=== PATIENT | male | born 1985 | race Caucasian/White ===

== ENCOUNTER 2019-06-30 05:57 | Inpatient (IN) | payer OTHER ==
[2019-06-24 15:38] VITALS: BMI 56.4
[~2019-06-30 05:57] MED LIST: BUPIVACAINE HCL/PF 0.25% (2.5MG/ML) 10 ML VIAL IJ ONE
[2019-06-30] MEDS ORDERED: ePHEDrine SULFATE 50 MG/1 ML AMPULE ONE (07:18)
[2019-06-30] MEDS ORDERED: PROPOFOL 20 ML ONE ×5 (07:18→08:18)
[2019-06-30] MEDS ORDERED: SUCCINYLCHOLINE CHLORIDE 200 MG/10 ML SYRINGE ONE (07:18)
[2019-06-30] MEDS ORDERED: MIDAZOLAM HCL 2 MG/2 ML SINGLE DOSE VIAL ONE ×2 (07:19→07:31)
[2019-06-30] MEDS ORDERED: ROCURONIUM BROMIDE 50 MG/5 ML SYRINGE ONE ×2 (07:19→07:33)
[2019-06-30] MEDS ORDERED: LIDOCAINE HCL/PF 2% SDV 5ML VIAL ONE (07:20)
[2019-06-30] MEDS ORDERED: ONDANSETRON 4 MG/2 ML VIAL ONE (07:20)
[2019-06-30] MEDS ORDERED: DEXAMETHASONE SOD PHOSPHATE 4 MG/1 ML VIAL ONE (07:20)
[2019-06-30] MEDS ORDERED: BUPIVACAINE HCL 0.25% 125 MG/50 ML VIAL ONE (07:30)
[2019-06-30] MEDS ORDERED: DEXAMETHASONE SOD PHOSPHATE/PF 10 MG/ML SDV ONE (07:31)
[2019-06-30] MEDS ORDERED: BUPIVACAINE HCL/PF 0.5% (5 MG/ML) 30 ML VIAL IJ ONE (07:31)
[2019-06-30] MEDS ORDERED: PHENYLEPHRINE HCL 10 MG/1 ML SINGLE DOSE VIAL ONE (07:37)
--- NOTE | 2019-06-30 07:41 | HP ---
Admitting History and Physical - Admission Chief Complaint: Morbid obesity History Source: Patient Limitations to Obtaining History: No Limitations - Smoking History Smoking history: Former smoker Have you smoked in the past 12 months: No Aproximately how many cigarettes per day: 0 - Alcohol/Substance Use Hx Alcohol Use: (RARELY) - Social History ADL: Independent Home Medications - Allergies Allergies/Adverse Reactions: Allergies Allergy/AdvReac Type Severity Reaction Status Date / Time No Known Allergies Allergy Verified 06/30/19 06:57 - Home Medications Home Medications: Ambulatory Orders Docusate Sodium [Colace -] 100 mg PO TID #90 capsule 06/30/19 Famotidine [Pepcid] 20 mg PO BID #60 tablet 06/30/19 Ondansetron [Zofran -] 8 mg PO TID #30 tablet 06/30/19 Oxycodone HCl/Acetaminophen [Percocet 5-325 mg Tablet] 1 - 2 tab PO Q6H #28 tab MDD 4 06/30/19 Family Disease History - Family Disease History Family History: Denies Review of Systems - Review of Systems Constitutional: denies: Chills, Fever Neck: reports: No Symptoms Cardiovascular: reports: No Symptoms Respiratory: reports: No Symptoms Gastrointestinal: reports: No Symptoms Neurological: reports: No Symptoms Pain Intensity: 0 Physical Examination Vital Signs: Vital Signs Temperature 97.9 F 06/30/19 07:00 Pulse Rate 78 06/30/19 07:00 Respiratory Rate 20 06/30/19 07:00 Blood Pressure 114/78 06/30/19 07:00 O2 Sat by Pulse Oximetry (%) Constitutional: Yes: Calm, Obese Cardiovascular: Yes: WNL Respiratory: Yes: Regular Gastrointestinal: Yes: Soft, Abdomen, Obese. No: Tenderness Neurological: Yes: Alert, Oriented Problem List - Problems (1) Morbid obesity due to excess calories Code(s): E66.01 - MORBID (SEVERE) OBESITY DUE TO EXCESS CALORIES (2) BMI 50.0-59.9, adult Code(s): Z68.43 - BODY MASS INDEX (BMI) 50-59.9, ADULT Assessment/Plan Laparoscopic possible open vertical sleeve gastrectomy possible liver biopsy, upper endoscopy
[2019-06-30] MEDS ORDERED: ceFAZolin SODIUM 1 GM VIAL IVPB ONE (08:08)
[2019-06-30] MEDS ORDERED: HYDROmorphone HCL/PF 1 MG/ML AMP ONE ×4 (08:23)
[2019-06-30] MEDS ORDERED: ONDANSETRON 4 MG/2 ML VIAL IVPUSH PRN (08:52)
[2019-06-30] MEDS ORDERED: LACTATED RINGERS SOLUTION 1,000 ML IV SCH (09:00)
[2019-06-30] MEDS ORDERED: NEOSTIGMINE METHYLSULFATE 0.5 MG/ML - 10 ML MDV ONE (09:15)
[2019-06-30] MEDS ORDERED: GLYCOPYRROLATE 0.2 MG/1 ML VIAL ONE ×2 (09:16→09:17)
[2019-06-30] MEDS ORDERED: BUPIVACAINE HCL/PF 0.25% (2.5MG/ML) 10 ML VIAL IJ ONE (10:01)
[2019-06-30] MEDS ORDERED: FAMOTIDINE 20 MG/50 ML IVPB 20 MG/50 ML MG IVPB ONE (10:10)
--- NOTE | 2019-06-30 10:10 | OP ---
Operative Note - Note: Operative Date: 06/30/19 Pre-Operative Diagnosis: Morbid obesity. BMI 56.4 Operation: Diagnositc laparoscopy. Laparoscopic vertical sleeve gastrectomy. Laparoscopic wedge liver biopsy. Laparoscopic oversewing of gastric staple line Post-Operative Diagnosis: Same as Pre-op (as well as hepatomegaly and oozing from the gastric staple line) Surgeon: Doug Correa Tax Manager Public: Reuben Mcclendon Anesthesia: General Specimens Removed: Greater curvature of stomach. Liver Biopsy Estimated Blood Loss (mls): 30 Drains & Tubes with Location: 36 Fr Bougie Operative Report Dictated: Yes
[2019-06-30] MEDS ORDERED: METOCLOPRAMIDE HCL INJECTION 10 MG/2 ML VIAL IVPUSH SCH (10:15)
[2019-06-30] MEDS ORDERED: FAMOTIDINE 20 MG PREMIXED IVPB IVPB ONE (10:35)
[2019-06-30 10:50] LABS: HEMATOCRIT 47.6 % (35.4-49); HEMOGLOBIN 15.9 GM/dl (11.7-16.9); MCH 28.7 pg (25.7-33.7); MCHC 33.3 g/dl (32.0-35.9); MEAN CELL VOLUME 86.1 fl (80-96); MEAN PLT VOLUME 8.1 fl (7.5-11.1); PLATELET COUNT 267 K/MM3 (134-434); RBC 5.52 M/mm3 (4.00-5.60); RDW 12.8 % (11.9-15.9); WHITE BLOOD COUNT 11.8 K/mm3 (4.0-10.8)
[2019-06-30] MEDS ORDERED: ACETAMINOPHEN 1000 MG/100 ML VIAL (NON FORMULARY) IVPB ONE (10:55)
[2019-06-30 10:58] LABS: ALBUMIN 4.1 g/dl (3.4-5.0); BILIRUBIN,TOTAL 0.6 mg/dl (0.2-1); CALCIUM 8.4 mg/dl (8.5-10); CREATININE 0.9 mg/dl (0.55-1.3); POTASSIUM 3.9 mmol/L (3.5-5.1); TOT PROT 7.5 g/dl (6.4-8.2)
[2019-06-30] MEDS ORDERED: ACETAMINOPHEN 1000 MG/100 ML VIAL (NON FORMULARY) IVPB SCH (12:00)
--- NOTE | 2019-06-30 12:35 | SPEC ---
DATE OF OPERATION: 06/30/2019 PLACE OF SERVICE: [facility], [address] [place] [address] SURGEON: Monica Correa MD PLASTIC SURGERY SPECIALIST: Reuben Mcclendon MD PREOPERATIVE DIAGNOSES: 1. Morbid obesity. 2. Body mass index of 56.4. POSTOPERATIVE DIAGNOSES: 1. Morbid obesity. 2. Body mass index of 56.4. 3. Hepatomegaly. 4. Oozing from the gastric staple line. PROCEDURES: 1. Diagnostic laparoscopy. 2. Laparoscopic vertical sleeve gastrectomy. 3. Laparoscopic wedge liver biopsy. 4. Laparoscopic oversewing of gastric staple line. SPECIMENS: 1. Greater curvature of the stomach. 2. Liver biopsy. ESTIMATED BLOOD LOSS: 30 mL. DRAINS: None. ANESTHESIA: GET. BOUGIE SIZE: 36-Croatian. REASON FOR PROCEDURE: This is a 34-year-old gentleman who presents to the office for weight loss options. After describing the weight loss options, he has decided to proceed with laparoscopic, possible open, vertical sleeve gastrectomy, possible liver biopsy, and upper endoscopy. RISKS AND BENEFITS: After describing the different options for weight loss management, the patient decided to proceed with a laparoscopic, possible open vertical sleeve gastrectomy. The patient was seen by the respective subspecialties and cleared for surgery. The risks and benefits of the procedure were explained. These included bleeding, infection, hernia, [place], DVT, PE, injury to surrounding structures including the liver, colon, bowel, spleen, esophagus, vessel injury, nerve injury, weight regain, gastric leak, staple line leak, sleeve leak, obstruction, vitamin deficiency, hair loss and as some of the possible complications. The patient understood and signed informed consent. DESCRIPTION OF PROCEDURE: The patient was placed supine on the operating room table. The patient underwent general endotracheal intubation. The arms were brought out at 90 degrees and secured. A footboard was placed and the legs were secured laterally with padding. The abdomen was prepped and draped in the usual sterile fashion. A timeout was performed. An incision was made in the left upper quadrant and a Veress needle inserted. Pneumoperitoneum was established. Subsequently, the Veress needle was removed and a 5-mm trocar was placed under direct visualization with the laparoscope. The laparoscopic camera was then inserted and inspection of the abdominal cavity was performed. An incision was then made in the supraumbilical area and a 15-mm trocar was placed under direct visualization. A 5-mm trocar was then placed in the right upper quadrant and a 5-mm trocar was placed below the left subcostal margin. A stab wound was made in the subxiphoid area and a Lisbeth clamp inserted and removed to dilate the tract. A Gordo liver retractor was inserted. The post was secured at the bedside by the nursing staff. The patient was placed in steep reverse Trendelenburg position and the Gordo liver retractor was used to secure the liver towards the anterior abdominal wall. The pylorus was identified and 6 cm proximal to it, the lesser sac was entered using the LigaSure device. All lateral attachments to the greater curvature of the stomach, including the short gastric vessels, were ligated using the LigaSure device toward the gastrosplenic and gastrophrenic ligaments. Once this was done in its entirety, it was confirmed that all tubes within the nasal or oropharyngeal cavity, including a temperature probe were removed by Anesthesia. The bougie was then inserted by Anesthesia. Transection of the stomach was then begun staying adjacent to the bougie but away from the angularis. Transection of the stomach was performed near the portion of the stomach where the lesser sac was entered. Two laparoscopic Endo SULMA black malka were used at this location. Laparoscopic Endo SULMA purple staple loads were then used for the remainder of the transection until the greater curvature of the stomach was fully transected. This was done staying close to the bougie. Care was taken to stay away from the angle of His cephalad. The staple line was then inspected. Hemostasis was identified. A leak test was then performed. It was clamped distally to the staple line. Irrigation solution was placed in the left upper quadrant and air was insufflated by Anesthesia into the sleeve. No leaks were identified. No obstruction was identified. This was done through the entirety of the staple line. The stomach was suctioned and the bougie removed fully intact under direct visualization. At this point, the irrigation solution was suctioned and again, hemostasis was noted. A wedge liver biopsy was then performed. The left lobe of the liver was identified. A portion of the edge of the left lobe of the liver was grasped. Using electrocautery, a wedge of the left liver was excised. The specimen was removed and sent off the field. Hemostasis of the wedge liver biopsy site was attained and noted using electrocautery. The 15-mm supraumbilical trocar was then removed and the greater curvature specimen removed from the site using a sponge stick rangel. A Ga-Frances device was then used to close the fascia with a 0 Vicryl suture at the site. Again, hemostasis was noted. The Gordo liver retractor was then removed under direct visualization. Pneumoperitoneum was desufflated. Hemostasis was noted at all incision sites and Marcaine was injected at all incision sites. A 3-0 Vicryl suture was used to close the deep subcutaneous tissue at the 15-mm incision site. All incision sites were closed using 4-0 Biosyn. Sterile dressings were applied. In addition, because of oozing from the gastric staple line, oversewing was required. Using the EndoAssist device and a 2-0 Ethibond suture, the staple line was oversewn in multiple positions. Once the entirety of the staple line was oversewn, hemostasis was controlled. The patient tolerated the procedure well and was transferred to the recovery room in stable condition. MONICA CORREA M.D. [id number]
[2019-06-30] MEDS: ONDANSETRON 4 MG/2 ML VIAL IVPUSH SCH ×3 (17:15→22:24)
[2019-06-30] MEDS: ACETAMINOPHEN 1000 MG/100 ML VIAL (NON FORMULARY) IVPB SCH (19:39)
[2019-06-30] MEDS: METOCLOPRAMIDE HCL INJECTION 10 MG/2 ML VIAL IVPUSH SCH (19:40)
[2019-06-30] MEDS: HYDROmorphone HCL CARPU-JECT 1 MG/1 ML DISP.SYRIN IVPB PRN (20:35)
--- NOTE | 2019-06-30 20:39 | CONSULT ---
Consult Consult Specialty:: IM Reason for Consultation:: post-op medical anagement - History of Present Illness Chief Complaint: abdominal discomfort - History Source History Provided By: Patient Limitations to Obtaining History: No Limitations - Alcohol/Substance Use Hx Alcohol Use: (RARELY) - Smoking History Smoking history: Former smoker Have you smoked in the past 12 months: No Aproximately how many cigarettes per day: 0 - Social History ADL: Independent Home Medications - Allergies Allergies/Adverse Reactions: Allergies Allergy/AdvReac Type Severity Reaction Status Date / Time No Known Allergies Allergy Verified 06/30/19 06:57 - Home Medications Home Medications: Ambulatory Orders Docusate Sodium [Colace -] 100 mg PO TID #90 capsule 06/30/19 Famotidine [Pepcid] 20 mg PO BID #60 tablet 06/30/19 Ondansetron [Zofran -] 8 mg PO TID #30 tablet 06/30/19 Oxycodone HCl/Acetaminophen [Percocet 5-325 mg Tablet] 1 - 2 tab PO Q6H #28 tab MDD 4 06/30/19 Family Disease History - Family Disease History Family History: Unremarkable Review of Systems - Review of Systems Constitutional: reports: No Symptoms Eyes: reports: No Symptoms HENT: reports: No Symptoms Neck: reports: No Symptoms Cardiovascular: reports: No Symptoms Respiratory: reports: No Symptoms Gastrointestinal: reports: Bloating, Nausea Genitourinary: reports: No Symptoms Musculoskeletal: reports: No Symptoms Integumentary: reports: No Symptoms Neurological: reports: No Symptoms Endocrine: reports: No Symptoms Hematology/Lymphatic: reports: No Symptoms Psychiatric: reports: No Symptoms Pain Intensity: 3 Physical Exam Vital Signs: Vital Signs Temperature 98.2 F 06/30/19 16:00 Pulse Rate 107 H 06/30/19 16:00 Respiratory Rate 18 06/30/19 16:00 Blood Pressure 121/62 06/30/19 16:00 O2 Sat by Pulse Oximetry (%) 97 06/30/19 16:00 Constitutional: Yes: Well Nourished, No Distress Eyes: Yes: WNL HENT: Yes: WNL Neck: Yes: WNL Cardiovascular: Yes: WNL Respiratory: Yes: WNL Gastrointestinal: Yes: Abdomen, Obese ...Rectal Exam: Yes: Deferred Renal/: Yes: WNL Musculoskeletal: Yes: WNL Extremities: Yes: WNL Edema: No Peripheral Pulses WNL: Yes Neurological: Yes: WNL ...Motor Strength: WNL Psychiatric: Yes: WNL Labs: CBC, BMP 06/30/19 10:15 06/30/19 10:15 Assessment/Plan 34 yo obese an S/P Diagnositc laparoscopy. Laparoscopic vertical sleeve gastrectomy. Laparoscopic wedge liver biopsy. Laparoscopic oversewing of gastric staple line. cont pain management, incentive spirometry -GI, DVT prophylaxis. -for UGI series in AM -OOB as tolerated -cont reglan for nausea -hopefully can DC home tomorrow if cleared by surgery and tolerating PO diet.
[2019-06-30] MEDS: ENOXAPARIN NA (PORCINE) 40 MG/0.4 ML DISP.SYRIN SQ SCH (22:23)
[2019-06-30] MEDS: FAMOTIDINE 20 MG/50 ML IVPB 20 MG/50 ML MG IVPB SCH (22:24)
[2019-07-01] MEDS: ACETAMINOPHEN 1000 MG/100 ML VIAL (NON FORMULARY) IVPB SCH ×2 (00:01→05:47)
[2019-07-01] MEDS: HYDROmorphone HCL CARPU-JECT 1 MG/1 ML DISP.SYRIN IVPB PRN (00:02)
[2019-07-01] MEDS: METOCLOPRAMIDE HCL INJECTION 10 MG/2 ML VIAL IVPUSH SCH ×3 (00:02→11:05)
[2019-07-01] MEDS: ONDANSETRON 4 MG/2 ML VIAL IVPUSH SCH ×4 (03:12→15:20)
[2019-07-01 07:58] LABS: HEMATOCRIT 40.8 % (35.4-49); MCH 29.4 pg (25.7-33.7); MCHC 34.4 g/dl (32.0-35.9); MEAN CELL VOLUME 85.4 fl (80-96); PLATELET COUNT 257 K/MM3 (134-434); RBC 4.77 M/mm3 (4.00-5.60); RDW 12.6 % (11.9-15.9); WHITE BLOOD COUNT 11.4 K/mm3 (4.0-10.8)
[2019-07-01 08:11] LABS: ALBUMIN 3.5 g/dl (3.4-5.0); CALCIUM 8.6 mg/dl (8.5-10); CREATININE 0.7 mg/dl (0.55-1.3); POTASSIUM 4.3 mmol/L (3.5-5.1); TOT PROT 6.8 g/dl (6.4-8.2)
--- NOTE | 2019-07-01 08:34 | PN ---
Progress Note (short form) - Note Progress Note: ANESTHESIA POSTOP 34 YO MALE POD#1 S/P LAP GASTRIC SLEEVE, GETA, PNB Patient resting in chair. Pain adequately controlled. Some nausea VSS, Afebrile Continue current care. Encouraged IS and ambulation as directed
--- NOTE | 2019-07-01 09:11 | PN ---
Progress Note (short form) - Note Progress Note: POD 1 No acute events reported Vital Signs Period Temp Pulse Resp BP Sys/Hussein Pulse Ox Last 24 Hr 98 F-99.2 F 73-862 16-18 108-159/61-92 94-99 CBC,CMP WBC 11.4 K/mm3 (4.0-10.8) H 07/01/19 07:16 RBC 4.77 M/mm3 (4.00-5.60) 07/01/19 07:16 Hgb 14.0 GM/dl (11.7-16.9) 07/01/19 07:16 Hct 40.8 % (35.4-49) 07/01/19 07:16 MCV 85.4 fl (80-96) 07/01/19 07:16 MCH 29.4 pg (25.7-33.7) 07/01/19 07:16 MCHC 34.4 g/dl (32.0-35.9) 07/01/19 07:16 RDW 12.6 % (11.9-15.9) 07/01/19 07:16 Plt Count 257 K/MM3 (134-434) 07/01/19 07:16 MPV 8.0 fl (7.5-11.1) 07/01/19 07:16 Sodium 138 mmol/L (136-145) 07/01/19 07:16 Potassium 4.3 mmol/L (3.5-5.1) 07/01/19 07:16 Chloride 104 mmol/L (98-107) 07/01/19 07:16 Carbon Dioxide 28 mmol/L (21-32) 07/01/19 07:16 Anion Gap 6 MMOL/L (8-16) L 07/01/19 07:16 BUN 8.0 mg/dl (7-18) 07/01/19 07:16 Creatinine 0.7 mg/dl (0.55-1.3) 07/01/19 07:16 Est GFR (CKD-EPI)AfAm 144.72 07/01/19 07:16 Est GFR (CKD-EPI)NonAf 124.87 07/01/19 07:16 Random Glucose 112 mg/dl (74-106) H 07/01/19 07:16 Calcium 8.6 mg/dl (8.5-10) 07/01/19 07:16 Total Bilirubin 1.0 mg/dl (0.2-1) 07/01/19 07:16 AST 24 U/L (15-37) 07/01/19 07:16 ALT 35 U/L (13-61) 07/01/19 07:16 Alkaline Phosphatase 55 U/L (45-117) 07/01/19 07:16 Total Protein 6.8 g/dl (6.4-8.2) 07/01/19 07:16 Albumin 3.5 g/dl (3.4-5.0) 07/01/19 07:16 UGI pending If no leak and no obstruction, will start clears and plan for discharge Problem List - Problems (1) Morbid obesity due to excess calories Code(s): E66.01 - MORBID (SEVERE) OBESITY DUE TO EXCESS CALORIES (2) BMI 50.0-59.9, adult Code(s): Z68.43 - BODY MASS INDEX (BMI) 50-59.9, ADULT
[2019-07-01] MEDS: FAMOTIDINE 20 MG/50 ML IVPB 20 MG/50 ML MG IVPB SCH (09:13)
[2019-07-01] MEDS: SODIUM CHLORIDE 1,000 ML IV SCH ×2 (09:33→11:05)
[2019-07-01] MEDS: ENOXAPARIN NA (PORCINE) 40 MG/0.4 ML DISP.SYRIN SQ SCH (09:34)
--- NOTE | 2019-07-01 09:48 | PN ---
Progress Note, Physician Chief Complaint: mild abdominal discomfort - Current Medication List Current Medications: Active Medications Enoxaparin Sodium (Lovenox -) 40 mg SQ BID [facility] Last Admin: 07/01/19 09:34 Dose: 40 mg Hydromorphone HCl (Dilaudid Injection -) 1 mg IVPB Q3H PRN PRN Reason: PAIN LEVEL 4 - 6 Last Admin: 07/01/19 00:02 Dose: 1 mg Famotidine/Sodium Chloride (Pepcid 20 Mg Premixed Ivpb -) 20 mg in 50 mls @ 100 mls/hr IVPB BID [facility] Last Admin: 07/01/19 09:13 Dose: 100 mls/hr Sodium Chloride (Normal Saline -) 1,000 mls @ 150 mls/hr IV ASDIR [facility] Last Admin: 07/01/19 09:33 Dose: Not Given Metoclopramide HCl (Reglan Injection -) 10 mg IVPUSH Q6H [facility] Last Admin: 07/01/19 05:47 Dose: 10 mg Ondansetron HCl (Zofran Injection) 4 mg IVPUSH Q4H [facility] Last Admin: 07/01/19 05:47 Dose: 4 mg - Objective Vital Signs: Vital Signs Temperature 98.3 F 07/01/19 09:30 Pulse Rate 85 07/01/19 09:30 Respiratory Rate 18 07/01/19 09:30 Blood Pressure 129/58 L 07/01/19 09:30 O2 Sat by Pulse Oximetry (%) 98 07/01/19 09:30 Constitutional: Yes: Well Nourished, No Distress Eyes: Yes: WNL HENT: Yes: WNL Neck: Yes: WNL Cardiovascular: Yes: WNL Respiratory: Yes: WNL Gastrointestinal: Yes: WNL ...Rectal Exam: Yes: Deferred Genitourinary: Yes: WNL Musculoskeletal: Yes: WNL Extremities: Yes: WNL Edema: No Peripheral Pulses WNL: Yes Integumentary: Yes: WNL Neurological: Yes: WNL ...Motor Strength: WNL Psychiatric: Yes: WNL Labs: CBC, BMP 07/01/19 07:16 07/01/19 07:16 Assessment/Plan 34 yo obese an S/P Diagnositc laparoscopy. Laparoscopic vertical sleeve gastrectomy. Laparoscopic wedge liver biopsy. Laparoscopic oversewing of gastric staple line. cont pain management, incentive spirometry -GI, DVT prophylaxis. -for UGI today -OOB as tolerated -cont reglan for nausea -labs and meds reviewed -DC home later today. cleared from medical perspective.
[2019-07-01 14:05] VITALS: BP 124/65; PULSE 90; TEMP 98.4
[2019-07-01] MEDS ORDERED: oxyCODONE HCL 5 MG TABLET PO PRN (14:40)
[2019-07-01] MEDS ORDERED: SODIUM CHLORIDE 1,000 ML IV SCH (14:45)
--- NOTE | 2019-07-03 17:43 | PATH ---
Surgical Pathology Report Patient Name: PROSPER HILL Med. Rec. #: [id number] /Age/Gender: 1985 (Age: 34) / M Account: [id number] Location: [facility] Taken: 06/30/2019 Received: 06/30/2019 Reported: 07/03/2019 Physicians: Doug Correa M.D. Specimen(s) Received A: GREATER CURVATURE STOMACH B: LIVER BIOPSY Clinical History Morbid obesity Final Diagnosis A. GREATER CURVATURE STOMACH, LAPAROSCOPIC VERTICAL SLEEVE GASTRECTOMY: SEGMENT OF STOMACH SHOWING MILD CHRONIC GASTRITIS. IMMUNOSTAIN IS NEGATIVE FOR H. PYLORI ORGANISMS. B. LIVER, BIOPSY: LIVER TISSUE WITH MILD STEATOSIS (5%), FOCAL. NO HISTOLOGIC EVIDENCE OF HEPATITIS. NO INCREASE IN FIBROSIS (TRICHROME STAIN) OR IRON (IRON STAIN) DEPOSITION. Electronically Signed Lin Lindquist M.D. Gross Description A. Received in formalin, labeled "greater curvature of stomach," is a 17.5 x 3.5 cm. portion of stomach with a stapled margin of resection. The serosa is liebreman-brasher with minimal attached fat. The mucosa is lieberman-pink with normal folds. No mucosal masses are identified. Informatics Physician sections are submitted in one cassette. B. Received in formalin, labeled "liver biopsy" is a 2.8 x 0.8 x 0.5 cm portion of yellow-lieberman tissue, consistent with liver. Entirely submitted in one cassette. AE/07/02/2019 ebram/07/02/2019
== END 2019-07-01 17:18 | disposition home or self-care (01) | DRG 621 ==
LOC: FM/S 05:57
PROVIDERS: ADMIT Surgery; ATTEND Surgery
PROC: 0DJ04ZZ Inspection of Upper Intestinal Tract, Percutaneous Endoscopic Approach (ICD-10-PCS; 2019-06-30)
PROC: 0DB64Z3 Excision of Stomach, Percutaneous Endoscopic Approach, Vertical (ICD-10-PCS; principal; 2019-06-30 08:45)
PROC: 0FB24ZX Excision of Left Lobe Liver, Percutaneous Endoscopic Approach, Diagnostic (ICD-10-PCS; 2019-06-30 08:45)
DX: E66.01 Morbid (severe) obesity due to excess calories (principal); Z68.43 Body mass index [BMI] 50.0-59.9, adult; R16.0 Hepatomegaly, not elsewhere classified
CPT/HCPCS: 36415; 74241-TC-FY; 80053; 85027; 87389; 88305-TC; 88313-TC; 94760; J0131; J7030